=== PATIENT | female | born 1955 | race Caucasian/White ===

== ENCOUNTER 2017-08-18 10:20 | Emergency (ER) | payer OTHER ==
[2017-08-18] MEDS ORDERED: ONDANSETRON 4 MG INJ IV (11:24)
[2017-08-18] MEDS ORDERED: morphine 4 MG/ML VIAL IV (11:24)
[2017-08-18 11:42] LABS: URINE BLOOD (Dip) POC Negative (NEGATIVE); URINE GLUCOSE (Dip) POC Negative (NEGATIVE); URINE KETONES (Dip) POC Negative (NEGATIVE); URINE LEUKOCYTE EST (Dip) POC Negative (NEGATIVE); URINE NITRITE (Dip) POC Negative (NEGATIVE); URINE TOTAL PROTEIN POC Negative (NEGATIVE)
[2017-08-18 11:42] LABS: URINE PH (Dip) POC 6.5 (5.0-8.5)
[2017-08-18] MEDS: ACETAMINOPHEN 325 MG TAB PO (11:55)
== END 2017-08-18 14:09 | disposition home or self-care (01) ==
LOC: E/R 10:20
DX: M25.552 Pain in left hip (principal); I10 Essential (primary) hypertension
CPT/HCPCS: 73520; 81003; 99283-25